=== PATIENT | male | born 1995 | race Caucasian/White ===

== ENCOUNTER 2016-12-28 00:06 | Emergency (ER) | payer BC ==
[~2016-12-28] VITALS: Ht 188 cm; Wt 125.0 kg
[2016-12-28] MEDS ORDERED: LATUDA20 MG PO (00:21)
[2016-12-28 00:59] LABS: BASO % 0.5 % (0.0-2.0); EOS # 0.2 (0.0-0.7); EOS % 3.6 % (0-4.0); GRAN # 2.7 (1.4-6.5); GRAN % 45.2 % (42.2-75.2); HEMATOCRIT 42.2 % (36.0-47.0); HEMOGLOBIN 14.4 g/dl (12.5-16.1); LYMPH # 2.6 (1.2-3.4); LYMPH % 43.4 % (20.0-51.0); MEAN CELL VOLUME 92 fl (80.0-95.0); MEAN CORPUSCULAR HEMOGLOBIN 31 pg (26.0-32.0); MEAN CORPUSCULAR HGB CONC 34 g/dl (33.0-37.0); MONO # 0.4 (0.1-0.6); MONO % 7.1 % (1.7-9.3); PLATELET COUNT 249 K/mm3 (130-400); RED BLOOD COUNT 4.61 M/mm3 (4.20-5.60); REDCELL DISTRIBUTION WIDTH-CV 12.1 % (11.5-14.5)
[2016-12-28 01:00] VITALS: BP 117/71; PULSE 76; TEMP 97.6
[2016-12-28 01:12] LABS: ADJUSTED CALCIUM 8.5 mg/dL (8.4-10.2); ALBUMIN 3.6 gm/dL (3.5-5.0); BILIRUBIN,TOTAL 0.5 mg/dL (0.0-1.0); CALCIUM 8.2 mg/dL (8.4-10.2); CREATININE, serum 0.9 mg/dL (0.66-1.25); POTASSIUM 3.4 mmol/L (3.4-5.0); TOTAL PROTEIN 6.3 gm/dL (6.4-8.2)
== END 2016-12-28 03:10 | disposition home or self-care (01) ==
LOC: COL.ER 00:06
PROVIDERS: Emergency Medicine
DX: F10.120 Alcohol abuse with intoxication, uncomplicated (principal); Y90.6 Blood alcohol level of 120-199 mg/100 ml
CPT/HCPCS: J7030

== ENCOUNTER 2018-06-29 19:16 | Emergency (ER) | payer BC ==
[~2018-06-29] VITALS: Ht 188 cm; Wt 123.6 kg
[~2018-06-29 19:16] MED LIST: LATUDA20 MG PO
[2018-06-29 20:31] VITALS: BP 122/59; PULSE 87; TEMP 99
[2018-06-29] MEDS ORDERED: PREDNISONE20 MG PO (20:34)
== END 2018-06-29 20:40 | disposition home or self-care (01) ==
LOC: COL.ER 19:16
DX: R21 Rash and other nonspecific skin eruption (principal); F32.9 Major depressive disorder, single episode, unspecified; J45.909 Unspecified asthma, uncomplicated; G43.909 Migraine, unspecified, not intractable, without status migrainosus; F17.210 Nicotine dependence, cigarettes, uncomplicated
CPT/HCPCS: J7512

== ENCOUNTER 2020-08-02 11:55 | Emergency (ER) | payer BC ==
[~2020-08-02] VITALS: Ht 188 cm; Wt 129.5 kg
[~2020-08-02 11:55] MED LIST changes: +PREDNISONE20 MG PO
[2020-08-02 12:01] VITALS: TEMP 98.5
[2020-08-02 13:30] VITALS: BP 115/74; PULSE 63
== END 2020-08-02 13:40 | disposition home or self-care (01) ==
LOC: COL.ER 11:55
DX: S09.90XA Unspecified injury of head, initial encounter (principal); S01.01XA Laceration without foreign body of scalp, initial encounter; R40.2410 Glasgow coma scale score 13-15, unspecified time; J45.909 Unspecified asthma, uncomplicated; F17.210 Nicotine dependence, cigarettes, uncomplicated; Z79.52 Long term (current) use of systemic steroids; W20.8XXA Other cause of strike by thrown, projected or falling object, initial encounter; Y92.009 Unspecified place in unspecified non-institutional (private) residence as the place of occurrence of the external cause

== ENCOUNTER 2021-11-22 14:11 | Emergency (ER) | payer OTHER ==
[~2021-11-22] VITALS: Ht 188 cm; Wt 130.0 kg
[2021-11-22 14:38] LABS: BASO % 0.6 % (0.0-2.0); EOS % 0.6 % (0.0-4.0); GRAN # 3.6 K/mm3 (1.4-6.5); GRAN % 69.2 % (42.2-75.2); HEMATOCRIT 43.4 % (42.0-52.0); HEMOGLOBIN 15.7 g/dl (13.5-18.0); LYMPH # 0.8 K/mm3 (1.2-3.4); LYMPH % 14.9 % (20.0-51.0); MEAN CELL VOLUME 87 fl (80.0-100.0); MEAN CORPUSCULAR HEMOGLOBIN 31 pg (27-31); MEAN CORPUSCULAR HGB CONC 36 g/dl (33.0-37.0); MEAN PLATELET VOLUME 10.1 fl (7.4-10.4); MONO # 0.8 K/mm3 (0.1-0.6); MONO % 14.5 % (1.7-9.3); PLATELET COUNT 208 K/mm3 (130-400); RED BLOOD COUNT 5.02 M/mm3 (4.20-5.60); REDCELL DISTRIBUTION WIDTH-CV 11.6 % (11.5-14.5)
[2021-11-22 14:52] LABS: INR 1.5 (0.8-3.0); PROTHROMBIN TIME 16.1 SECONDS (9.7-12.8)
[2021-11-22 15:01] LABS: BILIRUBIN,TOTAL 0.9 mg/dL (0.2-1.2); C-REACTIVE PROTEIN 9.6 mg/dL (0.00-0.50); CALCIUM 9.4 mg/dL (8.4-10.2); CREATININE, serum 1.06 mg/dL (0.72-1.25); POTASSIUM 3.7 mmol/L (3.5-4.5); TOTAL PROTEIN 8.2 gm/dL (6.2-8.1)
[2021-11-22] MEDS ORDERED: NORCO 325 MG-51 TAB PO (15:15)
[2021-11-22] MEDS ORDERED: CEPHALEXIN500 M1 PO (15:15)
[2021-11-22 16:00] VITALS: BP 134/77; PULSE 89; TEMP 98
== END 2021-11-22 16:20 | disposition home or self-care (01) ==
LOC: COL.ER 14:11
PROVIDERS: Family Medicine
DX: K92.0 Hematemesis (principal)
CPT/HCPCS: C9113; J2405; J7120